=== PATIENT | female | born 1960 | race Caucasian/White ===

== ENCOUNTER 2021-01-23 12:35 | Outpatient (CLI) | payer BC | END 2021-01-23 12:36 | disposition home or self-care (01) | LOC: CSHULT 12:35 | PROVIDERS: ATTEND Otolaryngology Otolaryngic Allergy | DX: E04.1 Nontoxic single thyroid nodule (principal); E07.9 Disorder of thyroid, unspecified | CPT/HCPCS: 76536 ==

== ENCOUNTER 2021-12-24 12:04 | Outpatient (CLI) | payer BC | END 2021-12-24 12:05 | disposition home or self-care (01) | LOC: CSHMAMMO 12:04 | PROVIDERS: ATTEND Obstetrics & Gynecology | DX: Z12.31 Encounter for screening mammogram for malignant neoplasm of breast (principal); Z80.3 Family history of malignant neoplasm of breast | CPT/HCPCS: 77063; 77067 ==

== ENCOUNTER 2024-04-27 10:49 | Outpatient (CLI) | payer BC | END 2024-04-27 10:50 | disposition home or self-care (01) | LOC: CSHMAMMO 10:49 | PROVIDERS: ATTEND Obstetrics & Gynecology | DX: Z12.31 Encounter for screening mammogram for malignant neoplasm of breast (principal); Z80.3 Family history of malignant neoplasm of breast | CPT/HCPCS: 77063; 77067 ==